=== PATIENT | female | born 1960 ===

== ENCOUNTER → 2021-05-09 | Outpatient (CLI) | payer BC ==
[~2021-05-09] MED LIST: GADOTERATE 5 MMOL/10ML VIAL. INT ART ONE; IOHEXOL 300 MG/ML 50 ML VIAL. INT ART ONE; LIDOCAINE 1% Multi-Dose 20 ML VIAL. ID ONE
--- NOTE | 2021-05-09 18:15 | KCIC ---
Fluoroscopically guided injection of the left shoulder to facilitate a MR arthrogram 05/09/2021 Clinical history: Chronic left shoulder pain. Technique: After the risks and benefits of the procedure were explained to the patient, written infor med consent was obtained. The anterior skin surface of the right shoulder was prepped and draped in s terile fashion. 1% lidocaine was used as local anesthetic. Under fluoroscopic guidance, a 22-gauge sp inal needle was advanced into the anterior aspect of the left glenohumeral joint. Following this a so lution of 15 cc of a solution containing 5 cc of 0.1% lidocaine, 5 cc of Omnipaque 300, 15 cc of norm al saline and 0.1 cc of CLARISCAN were injected into the left glenohumeral joint. Following this the needle was removed and hemostasis achieved at the puncture site. A sterile bandage was placed on the skin puncture site. The patient tolerated the procedure well and there were no immediate complication s. The patient was taken to MRI for further imaging evaluation. The total fluoroscopic time for this study was 29 seconds. 1 digital fluoroscopic captured AP radiograph of the left shoulder was obtained . Impression: Technically successful injection of the left shoulder joint under fluoroscopy to facilita te a MR arthrogram as outlined above. Electronically signed by: Galindo Baeza MD (05/09/2021 6:12 PM) [id number]
--- NOTE | 2021-05-09 22:42 | KCIC ---
EXAM: MRI arthrogram left shoulder DATE: 05/09/2021 1:45 PM COMPARISON: None INDICATION: Reason: NONTRAUMATIC COMPLETE TEAR OF LEFT ROTATOR CUFF / Spl. Instructions: / History: Lt shoulder pain 2 months, no specific injury. TECHNIQUE: Multiplanar, multisequence MRI arthrogram of the left shoulder was performed following the administration of intra-articular gadolinium contrast contrast. FINDINGS: Iatrogenic distention of the left glenohumeral joint with gadolinium contrast. Subacromial-subdeltoid bursal distention for full-thickness rotator cuff tear. Contrast extension into the AC joint from th e inferior capsular disruption. Type I acromion no os acromiale. There is a full-thickness, full width tear of the supraspinatus tendon as well as a full-thickness, p artial width tear of the infraspinatus tendon, in total measuring approximately 3.8 cm in AP dimensio n. Medial retraction of the supraspinatus medial to the glenoid. Teres minor is intact. Rotator cuff muscle signal and bulk is normal without fatty atrophy. Long head biceps tendon is intact. Mild deformity of the anterior inferior labrum without discrete la bral tear. Regions of full-thickness cartilage defect particularly anterior glenoid and humeral head. Small lucius ral head osteophytes. No fracture or osteonecrosis. IMPRESSION: 1. Full-thickness, full width tear of the supraspinatus tendon and full-thickness, partial width tea r of the infraspinatus tendon. Retraction medial to the glenoid. 2. 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 Electronically signed by: Tony Bowser MD (05/09/2021 10:40 PM) JANEL
== END | disposition home or self-care (01) ==
LOC: KCIC 12:39
PROVIDERS: ATTEND Physician Assistant
DX: M75.122 Complete rotator cuff tear or rupture of left shoulder, not specified as traumatic (principal); M25.512 Pain in left shoulder; M94.212 Chondromalacia, left shoulder; Z79.899 Other long term (current) drug therapy
CPT/HCPCS: 23350; 73222; 77002; A9575; J3490; Q9967